=== PATIENT | female | born 1955 | race Caucasian/White ===

== ENCOUNTER → 2017-10-20 | Outpatient (CLI) | payer BC | LOC: CARDLAB 08:01 → CARDREHAB 15:43 → CARDLAB 15:43 | DX: I49.3 Ventricular premature depolarization (principal) ==

== ENCOUNTER → 2017-10-25 | Outpatient (CLI) | payer BC | LOC: RAD 12:00 → VAS 15:49 | DX: R07.89 Other chest pain (principal) ==

== ENCOUNTER 2018-03-14 09:53 | Outpatient (RCR) | payer BC | END 2018-03-14 10:30 | disposition home or self-care (01) | LOC: PT 09:53 | DX: S93.401D Sprain of unspecified ligament of right ankle, subsequent encounter (principal); M25.371 Other instability, right ankle; W18.41XD Slipping, tripping and stumbling without falling due to stepping on object, subsequent encounter; Y93.01 Activity, walking, marching and hiking ==

== ENCOUNTER 2018-06-06 15:29 | Outpatient (RCR) | payer BC | END 2018-06-06 16:00 | disposition home or self-care (01) | LOC: PT 15:29 | DX: M25.571 Pain in right ankle and joints of right foot (principal) ==

== ENCOUNTER → 2024-09-09 | Outpatient (CLI) | payer MEDICARE, BC | LOC: LAB 10:15 | DX: U07.1 COVID-19 (principal); R05.9 Cough, unspecified ==